=== PATIENT | male | born 1980 ===

== ENCOUNTER 2017-12-30 14:09 | Emergency (ER) | payer MEDICAID ==
[~2017-12-30] VITALS: Ht 175.3 cm; Wt 177.0 kg
[~2017-12-30 14:09] MED LIST: ALBU6.7H INH; ASCO500T6 PO; CETI10TA18 PO; CHOL200074 PO; ENOX40SY4 SQ; FERR325T18 PO; HYDR-3237 PO; INSU100I28 SQ-INSULIN; LISI-170 PO; METF10002 PO; METF500T27 PO; MOME13HF INH; MONT10TA9 PO; OXYC-306 PO; PIOG30TA4 PO; [UNRECOGNIZED DRUG - CODE] EACH EAR
[2017-12-30] MEDS ORDERED: DIPH,PERTUSS(ACELL),TET VAC/PF 0.5 ML IM-VACC ONE ×2 (15:13→15:30)
[2017-12-30] MEDS ORDERED: BACITRACIN ZINC OINT 500U/GM, 0.9 GM ONE (15:20)
[2017-12-30 15:26] VITALS: BP 109/57
== END 2017-12-30 15:35 | disposition home or self-care (01) ==
LOC: ED 15:28
DX: S80.12XA Contusion of left lower leg, initial encounter (principal); S81.832A Puncture wound without foreign body, left lower leg, initial encounter; E78.01 Familial hypercholesterolemia; I10 Essential (primary) hypertension; E11.9 Type 2 diabetes mellitus without complications; Z68.43 Body mass index [BMI] 50.0-59.9, adult; Z85.53 Personal history of malignant neoplasm of renal pelvis; Z90.5 Acquired absence of kidney; X58.XXXA Exposure to other specified factors, initial encounter; Y93.89 Activity, other specified; Y92.89 Other specified places as the place of occurrence of the external cause; Y99.8 Other external cause status
CPT/HCPCS: 90471; 90715; 99284

== ENCOUNTER 2018-08-12 22:56 | Emergency (ER) | payer MEDICAID ==
[~2018-08-12] VITALS: Ht 152.4 cm; Wt 175.0 kg
--- NOTE | 2018-08-12 23:43 | NUR ---
REPORT FROM MARIA MARTINEZ. PT IS RESTING. LAB AT BEDSIDE. PT IN NAD. PT STILL COMPLAINING OF ALL OVER BODY PAIN BUT CHEST PRESSURE IS IMPROVED. PT IS SINUS TACH. CALL LIGHT IN REACH
[2018-08-12 23:47] LABS: BASOPHILS # (AUTO) 0.04 x10^3/uL (0-0.1); BASOPHILS % (AUTO) 0 % (0-1); EOSINOPHILS # (AUTO) 0.18 x10^3/uL (0-0.4); EOSINOPHILS % (AUTO) 2 % (1-7); LYMPHOCYTES # (AUTO) 1.15 x10^3/uL (1-3.4); LYMPHOCYTES % (AUTO) 10 % (22-44); MD NO; MEAN CORPUSCULAR HEMOGLOBIN 25.9 pg (27.5-34.5); MEAN PLATELET VOLUME 8.1 fL (7.4-10.4); MONOCYTES % (AUTO) 6 % (2-9); NEUTROPHILS # (AUTO) 9.41 x10^3/uL (1.8-6.8); NEUTROPHILS % (AUTO) 82 % (42-75); PLATELET COUNT 425 x10^3/uL (130-400); RED BLOOD COUNT 5.24 x10^6/uL (4.38-5.82); RED CELL DISTRIBUTION WIDTH 16.6 % (9.4-14.8)
[2018-08-12 23:58] LABS: ALBUMIN 3.2 g/dL (3.4-5.0); ANION GAP 7 mmol/L (5-15); CALCIUM 8.6 mg/dL (8.5-10.1); CHLORIDE 108 mmol/L (98-107); CREATININE 1.57 mg/dL (0.7-1.3)
[2018-08-13 00:02] LABS: TROPONIN I < 0.015 ng/mL (0.000-0.045)
[2018-08-13] MEDS ORDERED: OMNIPAQUE 350 MG/ML, 100ML BOTTLE ONE (00:37)
--- NOTE | 2018-08-13 01:22 | NUR ---
PT RESTING. PT GIVEN URINAL FOR UA SAMPLE
--- NOTE | 2018-08-13 02:54 | NUR ---
UA SEN TO LAB. FLUIDS RUNNING. PT RESTING WITH NO OTHER NEEDS AT THIS TIME. CALL LIGHT IN REACH
[2018-08-13 03:13] LABS: AMPHETAMINE SCREEN, URINE Negative (Negative); BARBITURATE SCREEN, URINE Negative (Negative); BENZODIAZEPINE SCREEN, URINE Negative (Negative); CANNABINOID SCREEN, URINE Positive (Negative); COCAINE SCREEN, URINE Negative (Negative); METHADONE SCREEN, URINE Negative (Negative); OPIATE SCREEN, URINE Negative (Negative)
[2018-08-13] MEDS ORDERED: SODIUM CHLORIDE 0.9% 1,000ML IVBOLUS ONE (03:30)
[2018-08-13 03:37] VITALS: BP 110/65
--- NOTE | 2018-08-13 03:43 | NUR ---
Patient given discharge instructions and they have confirmed that they understand the instructions. Patient ambulatory with steady gait.
== END 2018-08-13 03:46 | disposition home or self-care (01) ==
LOC: ED 23:59
DX: R06.00 Dyspnea, unspecified (principal); R00.2 Palpitations; F13.10 Sedative, hypnotic or anxiolytic abuse, uncomplicated; E78.5 Hyperlipidemia, unspecified; E11.22 Type 2 diabetes mellitus with diabetic chronic kidney disease; N18.9 Chronic kidney disease, unspecified; I12.9 Hypertensive chronic kidney disease with stage 1 through stage 4 chronic kidney disease, or unspecified chronic kidney disease
CPT/HCPCS: 36415; 71045; 71275; 80048; 80307; 82040; 83880; 84484; 85025; 93005; 99284; J7030; Q9967

== ENCOUNTER 2020-04-19 22:46 | Emergency (ER) | payer MEDICAID ==
[~2020-04-19] VITALS: Ht 175.3 cm; Wt 175.0 kg
[~2020-04-19 22:46] MED LIST changes: -ALBU6.7H INH; +ALBU6.7H8 INH; -ASCO500T6 PO; +ASCO500T9 PO; -MONT10TA9 PO; +MONT10TA96 PO; +OMNIPAQUE 350 MG/ML, 100ML BOTTLE ONE; -PIOG30TA4 PO; +PIOG30TA68 PO
--- NOTE | 2020-04-19 22:55 | NUR ---
cc of sob since friday with worsening symptoms tonight and pain in r leg 11/18 starting yesterday. has cough, temp of 99.8. rapid covivd test done at [facility] with negative result. pt sitting up on side of bed, speaking clear sentences with no respiratory distress. 93-97% ra
[2020-04-19] MEDS ORDERED: ONDANSETRON 2MG/ML, 2ML IVPush ONE (23:00)
[2020-04-19] MEDS ORDERED: MORPHINE SULFATE 4 MG/ML, 1ML IVPush ONE (23:00)
--- NOTE | 2020-04-19 23:15 | NUR ---
US IN ROOM
[2020-04-19] MEDS ORDERED: MORPHINE SULFATE 4 MG/ML, 1ML ONE (23:19)
[2020-04-19] MEDS ORDERED: ONDANSETRON 2MG/ML, 2ML ONE (23:19)
[2020-04-20] MEDS ORDERED: SODIUM CHLORIDE 0.9% 1,000ML IVBOLUS ONE
[2020-04-20 00:08] LABS: BASOPHILS % (AUTO) 1 % (0-1); EOSINOPHILS % (AUTO) 1 % (1-7); LYMPHOCYTES % (AUTO) 16 % (22-44); MEAN CORPUSCULAR HEMOGLOBIN 27.8 pg (27.5-34.5); MEAN CORPUSCULAR HGB CONC 33.1 g/dL (33.2-36.2); MEAN PLATELET VOLUME 8.3 fL (7.4-10.4); MONOCYTES % (AUTO) 11 % (2-9); NEUTROPHILS % (AUTO) 71 % (42-75); PLATELET COUNT 390 x10^3/uL (130-400); RED BLOOD COUNT 4.93 x10^6/uL (4.38-5.82); RED CELL DISTRIBUTION WIDTH 14.2 % (9.4-14.8)
--- NOTE | 2020-04-20 00:15 | NUR ---
PT RESTING IN ROOM, NO NEEDS AT THIS TIME. LIGHTS DIMMED FOR COMFORT
[2020-04-20 00:18] LABS: ANION GAP 4 mmol/L (5-15); CALCIUM 8.7 mg/dL (8.5-10.1); CHLORIDE 101 mmol/L (98-107); CREATININE 1.25 mg/dL (0.7-1.3); MD NO
[2020-04-20 00:19] LABS: ALBUMIN 2.9 g/dL (3.4-5.0)
[2020-04-20 00:23] LABS: TROPONIN I < 0.015 ng/mL (0.000-0.045)
--- NOTE | 2020-04-20 00:46 | NUR ---
Patient to CT.
--- NOTE | 2020-04-20 01:34 | NUR ---
PT RESTING IN ROOM, NO NEEDS AT THIS TIME, PT CONNECTED TO CARDIAC MONITORS AND PULSE OX
--- NOTE | 2020-04-20 02:50 | NUR ---
PT SLEEPING, NO NEEDS AT THIS TIME
[2020-04-20] MEDS ORDERED: CEPHALEXIN 500 MG CAPSULE ONE (03:20)
[2020-04-20] MEDS ORDERED: SULFAMETH./TRIMETHOPRIM DS 800MG/160MG TABLET ONE (03:20)
--- NOTE | 2020-04-20 03:23 | NUR ---
PT ATTEMPTING TO CALL FAMILY FOR RIDE HOME
--- NOTE | 2020-04-20 03:29 | NUR ---
pt ambulatory to restroom with steady gait
[2020-04-20] MEDS ORDERED: SULFAMETH./TRIMETHOPRIM DS 800MG/160MG TABLET PO ONE (03:30)
[2020-04-20] MEDS ORDERED: CEPHALEXIN 500 MG CAPSULE PO ONE (03:30)
[2020-04-20 03:45] VITALS: BP 103/65
== END 2020-04-20 04:05 | disposition home or self-care (01) ==
LOC: ED 23:26
DX: L03.115 Cellulitis of right lower limb (principal); R06.00 Dyspnea, unspecified; R05 Cough; R00.0 Tachycardia, unspecified; E11.9 Type 2 diabetes mellitus without complications; I10 Essential (primary) hypertension; J45.909 Unspecified asthma, uncomplicated; Z90.49 Acquired absence of other specified parts of digestive tract; E66.01 Morbid (severe) obesity due to excess calories; Z68.43 Body mass index [BMI] 50.0-59.9, adult
CPT/HCPCS: 36415; 71045; 71275; 80048; 82040; 83880; 84484; 85025; 93005; 93971; 96374; 96375; 99285; J2270; J2405; J7030; Q9967